=== PATIENT | male | born 1990 | race Hispanic/Latino ===

== ENCOUNTER 2022-10-04 15:08 | Emergency (ER) | payer OTHER, SELFPAY ==
[2022-10-04] MEDS ORDERED: Heparin 10,000 UNITS/ 10 ML VIAL FS PRN (17:04)
[2022-10-04 19:31] LABS: HBSAg Index 0.22 S/CO (0-0.99); Hep B Surf Ag Non-Reactive S/CO (NonReactive)
[2022-10-04 23:09] LABS: HBSAB Concentration Less than 8.00 mIU/mL; Hep B Surf AB Non-Reactive (NonReactive)
== END 2022-10-04 22:40 | disposition home or self-care (01) ==
LOC: CSHERS 15:08
DX: I12.0 Hypertensive chronic kidney disease with stage 5 chronic kidney disease or end stage renal disease (principal); E11.22 Type 2 diabetes mellitus with diabetic chronic kidney disease; N18.6 End stage renal disease; E87.70 Fluid overload, unspecified; Z99.2 Dependence on renal dialysis
CPT/HCPCS: 86706; 87340; 90935; 99284; G0257; J1644

== ENCOUNTER 2022-10-06 15:37 | Emergency (ER) | payer OTHER ==
[2022-10-06 16:10] LABS: #Eosinphils 0.2 10x3/uL (0.0-0.5); #Monocytes 0.7 10x3/uL (0.0-1.1); #Neutrophils 6.1 10x3/uL (1.5-8.4); %Basophils 0.5 % (0.0-2.0); %Eosinophils 2.5 % (0.0-6.0); %Lymphocytes 19.9 % (18.0-47.0); %Monocytes 7.6 % (0.0-10.0); %Neutrophils 69.2 % (40.0-75.0); Hemoglobin 8.5 g/dL (13.5-17.5); Mean Corpuscular HGB CONC 33.5 g/dL (32.0-36.0); Mean Corpuscular Volume 83.6 fl (81.2-95.1); Platelet Count 189 10x3/uL (150-450); RBC Distribution Width 13.2 % (11.5-14.5); Red Blood Cell (RBC) Count 3.04 10x6/uL (4.32-5.72); White Blood Cell (WBC) Count 8.7 10x3/uL (3.5-10.5)
[2022-10-06 16:24] LABS: Phosphorus 4.3 mg/dL (2.3-4.7)
[2022-10-06 16:28] LABS: ALT (SGPT) 11 U/L (8-55); AST (SGOT) 12 U/L (5-34); Albumin 3.3 g/dL (3.5-5.0); Alkaline Phosphatase 69 U/L (40-110); Anion Gap 11 mmol/L (10-20); BUN (Urea Nitrogen) 42 mg/dL (8.9-20.6); Bilirubin, Total 0.5 mg/dL (0.2-1.2); Calc. Creatinine Clearance 0 mL/min (70-130); Calcium 7.9 mg/dL (7.8-10.44); Carbon Dioxide 26 mmol/L (22-29); Chloride 107 mmol/L (98-107); Estimated GFR 14; Globulin 2.1 g/dL (2.4-3.5); Glucose 83 mg/dL (70-105); Magnesium 1.7 mg/dL (1.6-2.6); Potassium 4.8 mmol/L (3.5-5.1); Protein, Total 5.4 g/dL (6.0-8.3); Sodium 139 mmol/L (136-145)
== END 2022-10-06 16:53 | disposition home or self-care (01) ==
LOC: CSHERS 15:37
DX: R06.02 Shortness of breath (principal); E11.22 Type 2 diabetes mellitus with diabetic chronic kidney disease; N18.6 End stage renal disease; I12.0 Hypertensive chronic kidney disease with stage 5 chronic kidney disease or end stage renal disease; K21.9 Gastro-esophageal reflux disease without esophagitis; Z99.2 Dependence on renal dialysis
CPT/HCPCS: 36415; 71045; 80053; 83735; 84100; 85025

== ENCOUNTER 2022-12-14 06:20 | Emergency (ER) | payer OTHER ==
[2022-12-14] MEDS ORDERED: Heparin 10,000 UNITS/ 10 ML VIAL CATH SCH (11:45)
== END 2022-12-14 13:56 | disposition home or self-care (01) ==
LOC: CSHERS 06:20
DX: I12.0 Hypertensive chronic kidney disease with stage 5 chronic kidney disease or end stage renal disease (principal); N18.6 End stage renal disease; Z99.2 Dependence on renal dialysis
CPT/HCPCS: 90935; 99284; G0257; J1644

== ENCOUNTER 2023-01-30 20:20 | Inpatient (IN) | payer OTHER, SELFPAY ==
[2023-01-30 21:38] LABS: #Eosinphils 0.1 10x3/uL (0.0-0.5); #Monocytes 0.5 10x3/uL (0.0-1.1); #Neutrophils 5.4 10x3/uL (1.5-8.4); %Basophils 0.2 % (0.0-2.0); %Eosinophils 1.9 % (0.0-6.0); %Lymphocytes 5.2 % (18.0-47.0); %Monocytes 7.2 % (0.0-10.0); %Neutrophils 84.9 % (40.0-75.0); ALT (SGPT) 9 U/L (8-55); AST (SGOT) 13 U/L (5-34); Albumin 3.5 g/dL (3.5-5.0); Alkaline Phosphatase 98 U/L (40-110); Anion Gap 19 mmol/L (10-20); BUN (Urea Nitrogen) 24 mg/dL (8.9-20.6); Bilirubin, Total 0.4 mg/dL (0.2-1.2); Calc. Creatinine Clearance 0 mL/min (70-130); Calcium 7.7 mg/dL (7.8-10.44); Carbon Dioxide 26 mmol/L (22-29); Chloride 96 mmol/L (98-107); Estimated GFR 14; Globulin 3.3 g/dL (2.4-3.5); Glucose 78 mg/dL (70-105); Hematocrit 28.4 % (38.8-50.0); Hemoglobin 9.6 g/dL (13.5-17.5); Mean Corpuscular HGB CONC 33.8 g/dL (32.0-36.0); Mean Corpuscular Hemoglobin 27.6 pg (27.0-33.0); Mean Corpuscular Volume 81.6 fl (81.2-95.1); Mean Platelet Volume 9.8 fl (7.4-10.4); Platelet Count 230 10x3/uL (150-450); Potassium 3.4 mmol/L (3.5-5.1); Protein, Total 6.8 g/dL (6.0-8.3); RBC Distribution Width 13.2 % (11.5-14.5); Red Blood Cell (RBC) Count 3.48 10x6/uL (4.32-5.72); Sodium 138 mmol/L (136-145); White Blood Cell (WBC) Count 6.4 10x3/uL (3.5-10.5)
[2023-01-30 21:44] LABS: Troponin I 0.012 ng/mL (< 0.028)
[2023-01-30 22:40] LABS: SARS-CoV-2 NAA Rapid Test Not Detected (NotDetected)
[2023-01-30] MEDS ORDERED: Vancomycin 1 GM VIAL ONE (23:29)
[2023-01-30] MEDS ORDERED: Guaifenesin DM 100-10/5 ML UDCUP PO PRN (23:48)
[2023-01-30] MEDS ORDERED: Dextrose 50% Abboject 50 ML SYRINGE SLOW IVP PRN (23:48)
[2023-01-30] MEDS ORDERED: Calcium Carbonate 500 MG ChewTAB PO PRN (23:48)
[2023-01-30] MEDS ORDERED: Senokot S 8.6-50 MG TAB PO PRN (23:48)
[2023-01-30] MEDS ORDERED: Ondansetron PF 4 MG/2 ML Vial IVP PRN (23:48)
[2023-01-30] MEDS ORDERED: Dextrose 5% in Water 1,000 ML IV PRN (23:48)
[2023-01-30] MEDS ORDERED: Glucagon 1 MG/ML KIT IM PRN (23:48)
[2023-01-30] MEDS ORDERED: HumaLOG 300 UNITS/3 ML VIAL SC PRN (23:49)
[2023-01-31] MEDS ORDERED: Sodium Chloride 0.9% 500 ML IV SCH (01:30)
[2023-01-31 01:43] VITALS: BMI 28.3
[2023-01-31] MEDS ORDERED: Calcium Carbonate 500 MG ChewTAB PO PRN (01:59)
[2023-01-31] MEDS ORDERED: Vancomycin Diaylsis Sliding Scale (Wt 71-99) FS SCH (02:00)
[2023-01-31] MEDS ORDERED: Vancomycin HCl 750 MG in Sodium Chloride 0.9% 250 ML 250 ML IVPB SCH (02:30)
[2023-01-31] MEDS: Acetaminophen 325 MG TAB PO PRN ×2 (03:38→08:40)
[2023-01-31 04:19] LABS: Anion Gap 13 mmol/L (10-20); BUN (Urea Nitrogen) 26 mg/dL (8.9-20.6); Calc. Creatinine Clearance 21 mL/min (70-130); Carbon Dioxide 27 mmol/L (22-29); Chloride 100 mmol/L (98-107); Estimated GFR 12; Glucose 139 mg/dL (70-105); Potassium 3.1 mmol/L (3.5-5.1); Sodium 137 mmol/L (136-145)
[2023-01-31 04:25] LABS: #Eosinphils 0.2 10x3/uL (0.0-0.5); #Monocytes 0.5 10x3/uL (0.0-1.1); #Neutrophils 3.6 10x3/uL (1.5-8.4); %Basophils 0.2 % (0.0-2.0); %Eosinophils 3.1 % (0.0-6.0); %Lymphocytes 9.8 % (18.0-47.0); %Monocytes 10.8 % (0.0-10.0); %Neutrophils 75.1 % (40.0-75.0); Hematocrit 22.9 % (38.8-50.0); Hemoglobin 7.9 g/dL (13.5-17.5); Mean Corpuscular HGB CONC 34.5 g/dL (32.0-36.0); Mean Corpuscular Hemoglobin 28.2 pg (27.0-33.0); Mean Corpuscular Volume 81.8 fl (81.2-95.1); Mean Platelet Volume 9.8 fl (7.4-10.4); Platelet Count 166 10x3/uL (150-450); RBC Distribution Width 13.2 % (11.5-14.5); White Blood Cell (WBC) Count 4.8 10x3/uL (3.5-10.5)
[2023-01-31] MEDS: NIFEdipine XL 30 MG ER.TAB PO SCH (08:39)
[2023-01-31] MEDS: Folic Acid/Vit B Comp W-C PO SCH (08:39)
[2023-01-31] MEDS: Cefepime 1 GM in Sodium Chloride 0.9% 100 ML IVPB SCH (08:39)
[2023-01-31] MEDS: Heparin 5,000 UNITS/ML VIAL SC SCH ×3 (08:39→20:53)
[2023-01-31] MEDS ORDERED: Vancomycin 1 GM in Sodium Chloride 0.9% 250 ML 250 ML IVPB SCH (09:00)
[2023-01-31] MEDS ORDERED: Heparin 10,000 UNITS/ 10 ML VIAL CATH PRN (10:30)
[2023-01-31] MEDS: diphenhydrAMINE 25 MG CAP PO PRN (21:44)
[2023-02-01 03:43] LABS: #Eosinphils 0.4 10x3/uL (0.0-0.5); #Monocytes 0.7 10x3/uL (0.0-1.1); #Neutrophils 5.8 10x3/uL (1.5-8.4); %Basophils 0.2 % (0.0-2.0); %Monocytes 8.9 % (0.0-10.0); %Neutrophils 72.3 % (40.0-75.0); Hematocrit 22.7 % (38.8-50.0); Hemoglobin 7.6 g/dL (13.5-17.5); Mean Corpuscular HGB CONC 33.5 g/dL (32.0-36.0); Mean Corpuscular Hemoglobin 28.1 pg (27.0-33.0); Mean Corpuscular Volume 84.1 fl (81.2-95.1); Mean Platelet Volume 9.7 fl (7.4-10.4); Platelet Count 177 10x3/uL (150-450); RBC Distribution Width 13.4 % (11.5-14.5); White Blood Cell (WBC) Count 8.1 10x3/uL (3.5-10.5)
[2023-02-01 03:53] LABS: Anion Gap 15 mmol/L (10-20); BUN (Urea Nitrogen) 31 mg/dL (8.9-20.6); Calc. Creatinine Clearance 17 mL/min (70-130); Carbon Dioxide 24 mmol/L (22-29); Chloride 97 mmol/L (98-107); Estimated GFR 10; Glucose 86 mg/dL (70-105); Potassium 3.1 mmol/L (3.5-5.1); Sodium 133 mmol/L (136-145)
[2023-02-01 04:02] LABS: Calcium 6.7 mg/dL (7.8-10.44)
[2023-02-01] MEDS: Acetaminophen 325 MG TAB PO PRN (04:24)
[2023-02-01 07:33] LABS: Vancomycin, Random 23.5 ug/mL (See Comment)
[2023-02-01 08:47] LABS: HBSAg Index 0.16 S/CO (0-0.99); Hep B Surf Ag Non-Reactive S/CO (NonReactive)
[2023-02-01] MEDS: Cefepime 1 GM in Sodium Chloride 0.9% 100 ML IVPB SCH (08:57)
[2023-02-01] MEDS: HYDROcodone/Acetaminophen 5/325 mg Tablet PO PRN ×2 (08:58→21:08)
[2023-02-01] MEDS: Heparin 5,000 UNITS/ML VIAL SC SCH ×3 (08:58→21:08)
[2023-02-01] MEDS: NIFEdipine XL 30 MG ER.TAB PO SCH (09:01)
[2023-02-01] MEDS: Folic Acid/Vit B Comp W-C PO SCH (09:01)
[2023-02-01] MEDS ORDERED: EPOETIN ALFA-EPBX (ESRD) 10,000 UNITS/ML VIAL SC SCH (10:00)
[2023-02-01] MEDS: diphenhydrAMINE 25 MG CAP PO PRN (14:38)
[2023-02-01 14:44] LABS: HBSAB Concentration Less than 8.00 mIU/mL; Hep B Core Total Ab Non-Reactive (NonReactive); Hep B Core Total Index 0.38 S/CO (0-0.79); Hep B Surf AB Non-Reactive (NonReactive); Hep C IgG Ab Non-Reactive S/CO (NonReactive); Hep C Index 0.13 S/CO (0-0.79)
[2023-02-01] MEDS ORDERED: hydrALAZINE 20 MG/ML VIAL SLOW IVP PRN (18:07)
[2023-02-01] MEDS ORDERED: Sodium Chloride 0.9% 500 ML IV SCH (18:15)
[2023-02-02 07:41] LABS: #Eosinphils 0.3 10x3/uL (0.0-0.5); #Monocytes 0.7 10x3/uL (0.0-1.1); #Neutrophils 4.5 10x3/uL (1.5-8.4); %Basophils 0.3 % (0.0-2.0); %Eosinophils 3.6 % (0.0-6.0); %Lymphocytes 19.9 % (18.0-47.0); %Monocytes 10.5 % (0.0-10.0); %Neutrophils 65.1 % (40.0-75.0); Hematocrit 22.9 % (38.8-50.0); Hemoglobin 7.5 g/dL (13.5-17.5); Mean Corpuscular HGB CONC 32.8 g/dL (32.0-36.0); Mean Corpuscular Hemoglobin 28.2 pg (27.0-33.0); Mean Corpuscular Volume 86.1 fl (81.2-95.1); Mean Platelet Volume 9.8 fl (7.4-10.4); Platelet Count 189 10x3/uL (150-450); RBC Distribution Width 13.2 % (11.5-14.5); Red Blood Cell (RBC) Count 2.66 10x6/uL (4.32-5.72)
[2023-02-02 07:47] LABS: Vancomycin, Random 12.9 ug/mL (See Comment)
[2023-02-02 08:05] LABS: ALT (SGPT) 11 U/L (8-55); AST (SGOT) 16 U/L (5-34); Alkaline Phosphatase 70 U/L (40-110); Anion Gap 14 mmol/L (10-20); BUN (Urea Nitrogen) 12 mg/dL (8.9-20.6); Bilirubin, Total 0.3 mg/dL (0.2-1.2); CRP (Inflammatory) 3.63 mg/dL (= or < 0.5); Calc. Creatinine Clearance 25 mL/min (70-130); Calcium 7.3 mg/dL (7.8-10.44); Carbon Dioxide 32 mmol/L (22-29); Chloride 100 mmol/L (98-107); Estimated GFR 15; Glucose 80 mg/dL (70-105); Potassium 3.5 mmol/L (3.5-5.1); Sodium 142 mmol/L (136-145)
[2023-02-02] MEDS: Cefepime 1 GM in Sodium Chloride 0.9% 100 ML IVPB SCH (09:16)
[2023-02-02] MEDS: Folic Acid/Vit B Comp W-C PO SCH (09:20)
[2023-02-02] MEDS: NIFEdipine XL 30 MG ER.TAB PO SCH (09:20)
[2023-02-02] MEDS: Heparin 5,000 UNITS/ML VIAL SC SCH ×3 (09:20→21:18)
[2023-02-02] MEDS: HYDROcodone/Acetaminophen 5/325 mg Tablet PO PRN (10:47)
[2023-02-02] MEDS: diphenhydrAMINE 25 MG CAP PO PRN (14:38)
[2023-02-02] MEDS ORDERED: Vancomycin HCl 750 MG in Sodium Chloride 0.9% 250 ML 250 ML IVPB SCH (16:00)
[2023-02-03 06:45] LABS: Hematocrit 23.1 % (38.8-50.0); Hemoglobin 7.6 g/dL (13.5-17.5)
[2023-02-03 06:58] LABS: Anion Gap 15 mmol/L (10-20); BUN (Urea Nitrogen) 17 mg/dL (8.9-20.6); Calc. Creatinine Clearance 18 mL/min (70-130); Calcium 7.1 mg/dL (7.8-10.44); Carbon Dioxide 28 mmol/L (22-29); Chloride 100 mmol/L (98-107); Estimated GFR 10; Glucose 79 mg/dL (70-105); Potassium 3.4 mmol/L (3.5-5.1); Sodium 140 mmol/L (136-145)
[2023-02-03] MEDS: NIFEdipine XL 30 MG ER.TAB PO SCH (09:53)
[2023-02-03] MEDS: Heparin 5,000 UNITS/ML VIAL SC SCH (09:54)
[2023-02-03] MEDS: Folic Acid/Vit B Comp W-C PO SCH (09:54)
[2023-02-03] MEDS: Cefepime 1 GM in Sodium Chloride 0.9% 100 ML IVPB SCH (09:54)
[2023-02-03 14:17] VITALS: BP 134/79; TEMP 99.4
== END 2023-02-03 13:45 | disposition home or self-care (01) | DRG 314 ==
LOC: CSHERS 20:20 → CSHTELE 23:38 → UNDOADMIN 01-31 01:11
PROVIDERS: ADMIT Student in an Organized Health Care Education/Training Program; ATTEND Internal Medicine
PROC: 5A1D70Z Performance of Urinary Filtration, Intermittent, Less than 6 Hours Per Day (ICD-10-PCS; principal; 2023-01-31)
PROC: 5A1D70Z Performance of Urinary Filtration, Intermittent, Less than 6 Hours Per Day (ICD-10-PCS; 2023-02-01)
DX: T82.7XXA Infection and inflammatory reaction due to other cardiac and vascular devices, implants and grafts, initial encounter (principal); N18.6 End stage renal disease; E87.1 Hypo-osmolality and hyponatremia; R65.10 Systemic inflammatory response syndrome (SIRS) of non-infectious origin without acute organ dysfunction; I12.0 Hypertensive chronic kidney disease with stage 5 chronic kidney disease or end stage renal disease; E11.22 Type 2 diabetes mellitus with diabetic chronic kidney disease; E87.6 Hypokalemia; K21.9 Gastro-esophageal reflux disease without esophagitis; R91.1 Solitary pulmonary nodule; D63.1 Anemia in chronic kidney disease; E83.51 Hypocalcemia; Z20.822 Contact with and (suspected) exposure to COVID-19; Z91.158 Patient's noncompliance with renal dialysis for other reason; Z88.8 Allergy status to other drugs, medicaments and biological substances; Z99.2 Dependence on renal dialysis
CPT/HCPCS: 36415; 36416; 71045; 80048; 80053; 80202; 83605; 84484; 85014; 85018; 85025; 86140; 86704; 87040; 87077; 90935; 93005; 96374; 96375; G0257; J0692; J1644; J3370; J3490; J7030; J7050; Q5105

== ENCOUNTER 2023-06-17 11:45 | Inpatient (IN) | payer OTHER ==
[2023-06-17 12:16] LABS: #Basophils 0.1 10x3/uL (0.0-0.2); #Eosinphils 0.3 10x3/uL (0.0-0.5); #Monocytes 0.9 10x3/uL (0.0-1.1); #Neutrophils 8.1 10x3/uL (1.5-8.4); %Basophils 0.7 % (0.0-2.0); %Eosinophils 2.8 % (0.0-6.0); %Lymphocytes 18.1 % (18.0-47.0); %Monocytes 7.8 % (0.0-10.0); %Neutrophils 69.1 % (40.0-75.0); Hemoglobin 11.5 g/dL (13.5-17.5); Mean Corpuscular HGB CONC 34.8 g/dL (32.0-36.0); Mean Corpuscular Hemoglobin 29.9 pg (27.0-33.0); Mean Corpuscular Volume 85.9 fl (81.2-95.1); Mean Platelet Volume 9.5 fl (7.4-10.4); Platelet Count 207 10x3/uL (150-450); RBC Distribution Width 13.8 % (11.5-14.5); Red Blood Cell (RBC) Count 3.84 10x6/uL (4.32-5.72); White Blood Cell (WBC) Count 11.7 10x3/uL (3.5-10.5)
[2023-06-17 12:26] LABS: ALT (SGPT) 30 U/L (8-55); AST (SGOT) 17 U/L (5-34); Albumin 4.1 g/dL (3.5-5.0); Alkaline Phosphatase 77 U/L (40-110); Anion Gap 19 mmol/L (10-20); BUN (Urea Nitrogen) 77 mg/dL (8.9-20.6); Bilirubin, Total 0.4 mg/dL (0.2-1.2); CK (CPK) 150 U/L (30-200); Calc. Creatinine Clearance 0 mL/min (70-130); Calcium 8.9 mg/dL (7.8-10.44); Carbon Dioxide 19 mmol/L (22-29); Chloride 103 mmol/L (98-107); Estimated GFR 5; Globulin 3.4 g/dL (2.4-3.5); Glucose 117 mg/dL (70-105); Potassium 3.8 mmol/L (3.5-5.1); Protein, Total 7.5 g/dL (6.0-8.3); Sodium 137 mmol/L (136-145)
[2023-06-17 12:27] LABS: Troponin I 0.025 ng/mL (< 0.028)
[2023-06-17] MEDS ORDERED: Iopamidol 370 76% 100 ML VIAL ONE (13:12)
[2023-06-17] MEDS ORDERED: Cefepime 2 GM VIAL ONE (14:59)
[2023-06-17] MEDS ORDERED: Dextrose 50% Abboject 50 ML SYRINGE SLOW IVP PRN (15:22)
[2023-06-17] MEDS ORDERED: Glucagon 1 MG/ML KIT IM PRN (15:22)
[2023-06-17] MEDS ORDERED: Insulin Regular 300 UNITS/3 ML VIAL SC PRN (15:22)
[2023-06-17] MEDS ORDERED: Dextrose 5% in Water 1,000 ML IV PRN (15:22)
[2023-06-17 15:30] LABS: Troponin I 0.023 ng/mL (< 0.028)
[2023-06-17 16:22] VITALS: BMI 28.1
[2023-06-17] MEDS: Aspirin Chewable 81 MG TAB PO SCH (16:38)
[2023-06-17] MEDS: Morphine 2 MG/ML VIAL SLOW IVP SCH (16:38)
[2023-06-17 18:16] LABS: Troponin I 0.022 ng/mL (< 0.028)
[2023-06-17] MEDS: Acetaminophen 325 MG TAB PO PRN (20:10)
[2023-06-17] MEDS: Heparin 5,000 UNITS/ML VIAL SC SCH (20:20)
[2023-06-18 04:03] LABS: #Basophils 0.1 10x3/uL (0.0-0.2); #Eosinphils 0.3 10x3/uL (0.0-0.5); #Monocytes 1.1 10x3/uL (0.0-1.1); #Neutrophils 7.5 10x3/uL (1.5-8.4); %Basophils 0.5 % (0.0-2.0); %Monocytes 9.5 % (0.0-10.0); %Neutrophils 66.4 % (40.0-75.0); Hematocrit 28.8 % (38.8-50.0); Hemoglobin 9.9 g/dL (13.5-17.5); Mean Corpuscular HGB CONC 34.4 g/dL (32.0-36.0); Mean Corpuscular Hemoglobin 29.6 pg (27.0-33.0); Mean Corpuscular Volume 86.2 fl (81.2-95.1); Mean Platelet Volume 9.6 fl (7.4-10.4); Platelet Count 184 10x3/uL (150-450); RBC Distribution Width 13.9 % (11.5-14.5); Red Blood Cell (RBC) Count 3.34 10x6/uL (4.32-5.72); White Blood Cell (WBC) Count 11.3 10x3/uL (3.5-10.5)
[2023-06-18 04:15] LABS: Anion Gap 17 mmol/L (10-20); BUN (Urea Nitrogen) 84 mg/dL (8.9-20.6); Calc. Creatinine Clearance 10 mL/min (70-130); Carbon Dioxide 19 mmol/L (22-29); Chloride 103 mmol/L (98-107); Estimated GFR 5; Glucose 77 mg/dL (70-105); Potassium 3.8 mmol/L (3.5-5.1); Sodium 135 mmol/L (136-145)
[2023-06-18] MEDS: Famotidine 20 MG TAB PO SCH (08:46)
[2023-06-18] MEDS: NIFEdipine XL 30 MG ER.TAB PO SCH (08:46)
[2023-06-18] MEDS: Aspirin Chewable 81 MG TAB PO SCH (08:46)
[2023-06-18] MEDS: Gabapentin 100 MG CAP PO SCH ×2 (12:46→16:37)
[2023-06-18] MEDS: Diclofenac 1% 100 GM Topical GEL TP SCH (12:49)
[2023-06-18 14:48] LABS: HBSAg Index 0.27 S/CO (0-0.99); Hep B Surf Ag Non-Reactive S/CO (NonReactive)
[2023-06-18] MEDS: Lorazepam 0.5 MG TAB PO PRN (18:20)
[2023-06-18 20:27] LABS: HBSAB Concentration Less than 8.00 mIU/mL; Hep B Core Total Ab Non-Reactive (NonReactive); Hep B Surf AB Non-Reactive (NonReactive); Hep C IgG Ab Non-Reactive S/CO (NonReactive); Hep C Index 0.18 S/CO (0-0.79)
[2023-06-18] MEDS: Diclofenac 1% 50 GM TOPICAL GEL TP SCH (21:20)
[2023-06-19 03:48] LABS: #Basophils 0.1 10x3/uL (0.0-0.2); #Eosinphils 0.2 10x3/uL (0.0-0.5); #Monocytes 0.8 10x3/uL (0.0-1.1); #Neutrophils 6.3 10x3/uL (1.5-8.4); %Basophils 0.6 % (0.0-2.0); %Eosinophils 2.6 % (0.0-6.0); %Lymphocytes 17.9 % (18.0-47.0); %Monocytes 9.2 % (0.0-10.0); %Neutrophils 69.3 % (40.0-75.0); Hematocrit 28.6 % (38.8-50.0); Hemoglobin 10.1 g/dL (13.5-17.5); Mean Corpuscular HGB CONC 35.3 g/dL (32.0-36.0); Mean Corpuscular Volume 84.9 fl (81.2-95.1); Mean Platelet Volume 9.5 fl (7.4-10.4); Platelet Count 194 10x3/uL (150-450); RBC Distribution Width 13.7 % (11.5-14.5); Red Blood Cell (RBC) Count 3.37 10x6/uL (4.32-5.72); White Blood Cell (WBC) Count 9.1 10x3/uL (3.5-10.5)
[2023-06-19 03:52] LABS: Anion Gap 11 mmol/L (10-20); BUN (Urea Nitrogen) 41 mg/dL (8.9-20.6); Calc. Creatinine Clearance 16 mL/min (70-130); Calcium 7.7 mg/dL (7.8-10.44); Carbon Dioxide 26 mmol/L (22-29); Chloride 101 mmol/L (98-107); Estimated GFR 9; Glucose 80 mg/dL (70-105); Potassium 3.2 mmol/L (3.5-5.1); Sodium 135 mmol/L (136-145)
[2023-06-19] MEDS: Diclofenac 1% 50 GM TOPICAL GEL TP SCH (05:58)
[2023-06-19] MEDS ORDERED: Nitroglycerin 0.4 MG TAB (25 Tab Bottle) SL PRN (08:20)
[2023-06-19] MEDS ORDERED: HYDROcodone/Acetaminophen 5/325 mg Tablet PO PRN (08:21)
[2023-06-19] MEDS ORDERED: Docusate 100 MG CAP PO PRN (11:03)
[2023-06-19 17:33] VITALS: BP 135/85; TEMP 97.6
== END 2023-06-19 19:02 | disposition home or self-care (01) | DRG 313 ==
LOC: CSHERS 11:45 → CSHTELE 15:24 → OBSVTOIN 06-19 16:11
PROVIDERS: ADMIT Internal Medicine; ATTEND Internal Medicine
PROC: 5A1D70Z Performance of Urinary Filtration, Intermittent, Less than 6 Hours Per Day (ICD-10-PCS; principal; 2023-06-19)
DX: R07.89 Other chest pain (principal); N18.6 End stage renal disease; I12.0 Hypertensive chronic kidney disease with stage 5 chronic kidney disease or end stage renal disease; R91.8 Other nonspecific abnormal finding of lung field; E11.22 Type 2 diabetes mellitus with diabetic chronic kidney disease; D72.829 Elevated white blood cell count, unspecified; K21.9 Gastro-esophageal reflux disease without esophagitis; F41.9 Anxiety disorder, unspecified; Z88.8 Allergy status to other drugs, medicaments and biological substances; Z79.899 Other long term (current) drug therapy; Z87.891 Personal history of nicotine dependence
CPT/HCPCS: 36415; 36416; 71275; 80048; 80053; 82550; 83605; 83690; 83880; 84484; 85025; 86704; 86706; 86803; 87040; 87340; 90935; 93005; 93306; 94760; 96372; 96374; G0257; G0378; J0692; J1644; J2272; Q9967